=== PATIENT | male | born 1980 | race Two or more races ===

== ENCOUNTER 2019-01-28 17:13 | Emergency (ER) | payer MEDICAID ==
[~2019-01-28] VITALS: Ht 165.1 cm; Wt 99.8 kg
[2019-01-28 19:30] VITALS: BP 110/71
== END 2019-01-28 19:32 | disposition home or self-care (01) ==
LOC: ER 17:17
DX: J02.9 Acute pharyngitis, unspecified (principal); J45.909 Unspecified asthma, uncomplicated; R22.1 Localized swelling, mass and lump, neck
CPT/HCPCS: 70490; 71046